=== PATIENT | female | born 1955 | race Caucasian/White ===

== ENCOUNTER 2023-05-19 10:25 | Outpatient (OUT) | payer MEDICARE, OTHER, SELFPAY ==
--- NOTE | 2023-05-19 10:27 | MM_ITS ---
Patient Name: REHANA READ MR#: [id number] : 1955 Exam Date: 05/19/2023 Ordering Doctor: DR XU WATERS RADIOLOGY REPORT PROCEDURE: MM TOMOSYNTHESIS SCREENING BI COMPARISON: MG MAMM SCREEN 3D VASU CAD, 03/06/2022. INDICATIONS: screening Calculator Name NCI Breast Cancer Risk Assessment Tool 5 Year Breast Cancer Risk 2.10% Lifetime Breast Cancer Risk 6.10% Personal Breast Cancer No Personal Ovarian Cancer No Treatments None Family Cancers None LOCATION: [facility] BREAST COMPOSITION: Scattered areas fibroglandular density. FINDINGS: DIAGNOSTIC CATEGORY 1--NEGATIVE. NO CHANGE FROM COMPARISON ASSESSMENT. Scattered benign-appearing calcifications are present. Scattered benign-appearing lymph nodes are present. RIGHT BREAST: No significant suspicious finding. LEFT BREAST: No significant suspicious finding. RECOMMENDATIONS: ROUTINE MAMMOGRAM AND CLINICAL EVALUATION IN 12 MONTHS. PLEASE NOTE: A NORMAL MAMMOGRAM DOES NOT EXCLUDE THE POSSIBILITY OF BREAST CANCER. A CLINICALLY SUSPICIOUS PALPABLE LUMP SHOULD BE BIOPSIED. Dictated by: Channing Mcpherson MD on 05/19/2023 at 11:45 Approved by: Channing Mcpherson MD on 05/19/2023 at 11:46
== END 2023-05-19 10:26 | disposition home or self-care (01) ==
LOC: MAMMO 10:25
PROVIDERS: PCP Family Medicine; Visit Provider Family Medicine
DX: Z12.31 Encounter for screening mammogram for malignant neoplasm of breast (principal)
CPT/HCPCS: 77063; 77067

== ENCOUNTER 2024-01-12 14:05 | Outpatient (OUT) | payer MEDICARE, OTHER, SELFPAY ==
--- NOTE | 2024-01-12 14:10 | XR_ITS ---
The [address] [address] Patient Name: REHANA READ MRN: [id number] date: 1955 Sex: F Assigned Patient Location: [facility] Current Patient Location: Accession/Order Number: [id number] Exam Date: 01/12/2024 14:25 Report Date: 01/15/2024 06:28 At the request of: XU WATERS Procedure: XR toe LT min 2V PROCEDURE: XR toe LT min 2V HISTORY: Pain Of Toe Of Left Foot M79.675 ; stubbed second toe 6 weeks ago COMPARISON: None. FINDINGS: BONES:Small nondisplaced corner fracture involving the distal medial corner of the second toe middle phalanx. Intra-articular extension no significant cortical step-off. SOFT TISSUES:No visible soft tissue swelling. EFFUSION:None visible. OTHER: Negative. XR/XR toe LT min 2V IMPRESSION: 1. Nondisplaced fracture of second middle phalanx with intra-articular extension. Electronically authenticated by: DEDE MARTINEZ Date: 01/15/2024 06:28
--- OUTSIDE RECORDS SUMMARY | 2024-01-12 14:24 | XMS_ITS | CCD ---
Author Organization [facility] Care Team Providers Care Coiled Tubing Supervisor Name Role Phone TIFFANIE ESQUIVEL Attending Unavailable TIFFANIE ESQUIVEL Admitting Unavailable TIFFANIE ESQUIVEL Consulting Unavailable FURLONG, DR STUART Mooney Primary Care Unavailable ONEL SEALS Unavailable FURLONG, DR STUART Mooney Consulting Unavailable FURLONG, DR STUART Mooney Attending Unavailable FURLONG, DR STUART Mooney Admitting Unavailable FURLONG, DR STUART Mooney Primary Care Unavailable FURLONG, DR STUART Mooney Primary Care Unavailable FURLONG, DR STUART Mooney Consulting Unavailable FURLONG, DR STAURT Mooney Attending Unavailable FURLONG, DR STUART Mooney Admitting Unavailable ZIEBER, DR NIKKO Astudillo Consulting Unavailable Unavailable Primary Care Provider Unavailidalia e Stuart Hazel DO Primary Care Provider STUART HAZEL Referring Unavailable FURLONG, STUART Mooney Primary Care Unavailable FURLONG, STUART Mooney Referring Unavailable FURLONG, STUART Mooney Primary Care Unavailable FURLOSTUART WOOD Attending Unavailable FURLOSTUART WOOD Referring Unavailable FURLONG, STUART Mooney Primary Care Unavailable FURLONG, STUART Mooney Attending Unavailable FURLONGSTUART Referring Unavailable FURLONG, STUART Mooney Primary Care Unavailable PRINCE GONZALES Attending Unavailable FURLONGSTUART Referring Unavailable FURLONG, STUART Mooney Primary Care Unavailable FURLONG, STUART Mooney Referring Unavailable FURLONG, STUART Mooney Primary Care Unavailable JIM VERONICA Admitting Unavailable JIM VERONICA Attending Unavailable FURLOSTUART WOOD Primary Care Unavailable RHETT MENDOZA Attending Unavailable STUART HAZEL Primary Care Unavailable JIM VERONICA Attending Unavailable JIM VERONICA Referring Unavailable FURLONGSTUART Primary Care Unavailable Medications Current Medications Medication Drug Class(es) Dates Sig (Normalized) Sig (Original) amLODIPine 2.5 mg oral tablet (5 sources) Dihydropyridine Calcium Channel Keven Start: 01-07-2024 take 1 tablet by mouth in the morning amLODIPine (NORVASC) 2.5 mg tablet take 1 tablet by mouth in the morning 90 tablet 1 01/07/2024 Active Start: 07-14-2023 End: 01-07-2024 take 1 tablet by mouth in the morning amLODIPine (NORVASC) 2.5 mg tablet Take 1 tablet (2.5 mg total) by mouth in the morning. 90 tablet 1 07/14/2023 01/07/2024 Discontinued Start: 01-14-2023 take 1 tablet by russ th in the morning amLODIPine (NORVASC) 2.5 mg tablet Take 1 tablet (2.5 mg total) by mouth in the morning. 90 tablet 1 01/14/2023 Active atorvastatin 10 mg oral tablet (5 sources) HMG-CoA Reductase Inhibitor Start: 08-14-2022 End: 05-13-2023 take 1 tablet by mouth once daily atorvastatin (LIPITOR) 10 mg tablet Indications: Hyperlipidemia, unspecified TAKE 1 TABLET BY MOUTH DAILY 90 tablet 2 05/13/2023 Active chondroitin sulfates 400 mg / glucosamine hydrochloride 500 mg oral tablet (2 sources) glucosamine-robert droi tin 500-400 mg tablet Take by mouth. Active glucosamine sulfate 500 mg oral tablet (4 sources) glucosamine sulf ate 500 mg tablet daily. Active irbesartan 300 mg oral tablet (5 sources) Angiotensin 2 Receptor Keven Start: 07-14-2023 take 1 tablet by mouth in the morning irbesartan (AVAPRO) 300 mg tablet Take 1 tablet (300 mg total) by mouth in the morning. 90 tablet 1 07/14/2023 Active Start: 06-26-2022 End: 05-13-2023 take 1 tablet by mouth once daily irbesartan (AVAPRO) 150 mg tablet Indications: Essential (primary) hypertension TAKE 1 TABLET BY MOUTH DAILY 90 tablet 2 05/13/2023 Active levothyroxine sodium 0.075 mg oral tablet (4 sources) l-Thyroxine Start: 10-02-2023 take 1 tablet by mouth once daily levothyroxine (SYNTHROID, LEVOTHROID) 75 MCG tablet Indications: Hypothyroidism take 1 tablet by mouth every day 90 tablet 2 10/02/2023 Active Start: 06-26-2022 take 1 tablet by once daily levothyroxine (SYNTHROID, LEVOTHROID) 75 MCG tablet Indications: Hypothyroidism TAKE 1 TABLET BY MOUTH EVERY DAY 90 tablet 3 06/26/2022 Active metoprolol tartrate 25 mg oral tablet (5 sources) beta-Adrenergic Keven Start: 12-19-2022 End: 12-21-2023 take 1 tablet by mouth twice daily metoprolol tartrate (LOPRESSOR) 25 mg tablet Indications: Essential hypertension take 1 tablet by mouth twice daily 180 tablet 1 12/21/2023 Active multivitamin-mine rals-lutein (CENTRUM SILVER) tablet (4 sources) multivitamin-min er als-lutein (CENTRUM SILVER) tablet daily. Active multivitamin-min erals-lutein (CENTRUM SILVER) tablet daily. 0 Active nystatin 123745 unt/ml topical cream (4 sources) Polyene Antifungal Start: 01-14-2023 apply 30 g topically twice daily nystatin (MYCOSTATIN) cream Indications: Intertrigo APPLY TO THE AFFECTED AREA(S) BY TOPICAL ROUTE 2 TIMES PER DAY 30 g 1 01/14/2023 Active omeprazole 20 mg delayed release oral tablet (2 sources) Proton Pump Inhibitor take 1 tablet by mouth in the morning omeprazole (PriLOSEC OTC) 20 mg EC tablet Take 1 tablet (20 mg total) by mouth in the morning. Active triamcinolone acetonide 0.005 mg/mg topical ointment (4 sources) Corticosteroid Start: 01-14-2023 triamcinolone (KENALOG) 0.5 % ointment Indications: Lichen sclerosus of female genitalia Apply 1 Application topically in the morning and 1 Application before bedtime. 15 g 1 01/14/2023 Active Completed/Discontinued Medications Medication Drug Class(es) Dates Sig (Normalized) Sig (Original) Gadobutrol (GADAVIST) 1 MMOL/ML injection 1-30 mL (1 source) Start: 10-02-2022 End: 10-02-2022 Gadobutrol (GADAVIST) 1 MMOL/ML injection 1-30 mL 20 ml sodium chloride 9 mg/ml injection (1 source) Start: 10-02-2022 End: 10-02-2022 Sodium chloride (PF) 0.9 % injection 1-100 mL Problems Active Problems Problem Classification Problem Date Documented Da te Episodic/Chronic Cardiac dysrhythmias (7 sources) Multiple premature ventricular complexes; Translations: [Ventricular premature depolarization] Onset: 7 05-13-2022 Chronic Cardiac dysrhythmias (4 sources) Bradycardia, unspecified; Translations: [BRADYCARDIA UNSPECIFIED] Onset: 3 Episodic Disorders of lipid metabolism (12 sources) Hyperlipidemia, unspecified; Translations: [Hyperlipidemia] Onset: 3 Chronic Diverticulosis and diverticulitis (1 source) Diverticulosis of intestine, part unspecified, without perforation or abscess without bleeding; Translations: [Diverticulosis of intestine, part unspecified, without perforation or abscess without bleeding] Onset: 4 Chronic Esophageal disorders (4 sources) Gastroesophageal reflux disease; Translations: [Gastro-esophageal reflux disease without esophagitis] Onset: 7 05-13-2022 Chronic Essential hypertension (10 sources) Essential (primary) hypertension; Translations: [Essential hypertension] Onset: 3 05-13-2023 Chronic Gastrointestinal hemorrhage (1 source) Melena; Translations: [Melena] Onset: 4 Episodic Menopausal disorders (1 source) Hormone replacement therapy; Translations: [HORMONE REPLACEMENT THERAPY] Onset: 3 Episodic Osteoarthritis (4 sources) Osteoarthritis; Translations: [Unspecified osteoarthritis, unspecified site] Onset: 3 05-13-2022 Chronic Other aftercare (1 source) Other halfway (current) drug therapy; Translations: [OTH CORRECTION CURRENT DRUG THERAPY] Onset: 3 Episodic Other nutritional; endocrine; and metabolic disorders (1 source) Overweight; Translations: [Overweight] Onset: 4 Episodic Other screening for suspected conditions (not mental disorders or infectious disease) (6 sources) Encounter for screening mammogram for malignant neoplasm of breast; Translations: [Encounter for screening for malignant neoplasm of colon] Onset: 2 Episodic Screening and history of mental health and substance abuse codes (1 source) Patient encounter status; Translations: [Encounter for screening for depression] 06-17-2023 Episodic Thyroid disorders (7 sources) Hypothyroidism, unspecified; Translations: [Hypothyroidism] Onset: 3 02-27-2023 Chronic Unclassified (1 source) Colon Cancer Screening Onset: 4 Unclassified (1 source) medicare annual wellness Onset: 4 Unclassified (1 source) Esophagitis, unspecified without bleeding; Translations: [Esophagitis, unspecified without bleeding] Onset: 4 Unclassified (1 source) screening, black stools Onset: 4 Past or Other Problems Problem Classification Problem Date Documented Da te Episodic/Chronic Diabetes mellitus without complication (4 sources) Hyperglycemia; Translations: [Hyperglycemia, unspecified] Onset: 08-09-2016 05-13-2022 Episodic Mood disorders (4 sources) Mood disorders Onset: 01-14-2023 Resolved: 07-14-2023 01-14-2023 Other nutritional; endocrine; and metabolic disorders (4 sources) Obesity; Translations: [Obesity, unspecified] Onset: 05-13-2022 Resolved: 07-14-2023 05-13-2022 Chronic Unclassified (4 sources) Onset: 01-14-2023 01-14-2023 Results Test Name Value Interpretation Reference Range Facility H PYLORI SCREENon 09-15-2023 H. pylori Org specific cx Ql (Lucero fld) Negative Normal NEG [facility] Comment on above: Performed By: #### 4 4015-6 #### [facility] ([id number]) [address] [place] [address] [address] [place] [address] Surgical Pathologyon 024 Surgical Pathology Normal [facility] Comment on above: Result Comment: [facility] [address] [place] [address] Surgical Pathology Consultation Patient Name:REHANA READ:1955 (Age: 68)Gender:FTaken:4Reported:09/19/2023hysician(s):Jim Veronica D.O. ([phone])Copy To: Rec. #:[id number]: #[id number] Final Pathologic Diagnosis 1. Stomach, antrum, biopsy: Gastric mucosa with mild reactive changes. No histological evidence of H. pylori infection on routine stain. 2. Distal esophagus, biopsy: Mildly reactive junctional mucosa without intestinal metaplasia and dysplasia. Report Electronically Signed Out rg/4Rfederico Baltazar MD Interpretation performed at [facility], [address] [place] [id number], License number: [id number]. Clinical History Screening, black stools. Gross Description 1. Received in formalin labeled RORO, #1: Antrum biopsy are 2 delarosa bits of soft tissue, each 0.3 cm in greatest dimension. Filtered and submitted in a single cassette. (1, ns, [id number], m7) MG 2. Received in formalin labeled RORO, #2: Distal esophagus biopsy are 2 delarosa bits of soft tissue, ranging from 0.4-0.5 cm in greatest dimension. Filtered and submitted in a single cassette. (1, ns, [id number], m7) MG mjg/09/15/2023GR Specimen(s) Received 1: Antrum biopsy 2: Distal esophageal biopsy Fee Codes(s): 1; 85356 2; 56741 COMPREHENSIVE METABOLIC PANE [facility] 07-14-2023 Albumin [Mass/Vol] 4.1 g/dL Normal 3.2-5.3 [facility] Comment on above: Performed By: #### T JOOJR, 80592-1, CMP #### [facility] ([id number]) [address], [address] [place] [address] ALP [Catalytic activity/Vol] 65 U/L Normal 39-130 [facility] Comment on above: Performed By: #### T HYR, 19123-9, CMP #### [facility] ([id number]) [address], [address] [place] [address] ALT [Catalytic activity/Vol] 20 U/L Normal 0-31 [facility] Comment on above: Performed By: #### T HYR, 73108-4, CMP #### [facility] ([id number]) [address], [address] [place] [address] Anion gap [Moles/Vol] 10 mmol/L Normal 5-15 [facility] Comment on above: Performed By: #### Zachary DONNELLY 44481-3, CMP #### [facility] ([id number]) [address], [address] [place] [address] AST [Catalytic activity/Vol] 21 U/L Normal 0-41 [facility] Comment on above: Performed By: #### Zachary DONNELLY 34567-1, CMP #### [facility] ([id number]) [address], [address] [place] [address] Bilirubin [Mass/Vol] 0.6 mg/dL Normal 0.3-1.2 [facility] Comment on above: Performed By: #### Zachary DONNELLY 51904-4, CMP #### [facility] ([id number]) [address], [address] [place] [address] Calcium [Mass/Vol] 8.7 mg/dL Normal 8.5-10.5 [facility] Comment on above: Performed By: #### Zachary DONNELLY 54816-1, CMP #### [facility] ([id number]) [address], [address] [place] [address] Chloride [Moles/Vol] 103 mmol/L Normal 98-109 [facility] Comment on above: Performed By: #### Zachary DONNELLY 61575-4, CMP #### [facility] ([id number]) [address], [address] [place] [address] CO2 [Moles/Vol] 31 mmol/L Normal 22-32 [facility] Comment on above: Performed By: #### Zachary DONNELLY 02229-4, CMP #### [facility] ([id number]) [address], [address] [place] [address] Creatinine [Mass/Vol] 0.62 mg/dL Normal 0.40-1.00 [facility] Comment on above: Result Comment: METH OD TRACEABLE TO IDMS STANDARD Performed By: #### Zachary DONNELLY, 53357-9, CMP #### [facility] ([id number]) [address], [address] [place] [address] eGFR (CKD-EPI) NON-RACE DEPENDENT >90 Normal >59 [facility] Comment on above: Result Comment: Reported eGFR is based on the CKD-EPI 2020 equation that does not use a race coefficient. Performed By: #### Zachary DONNELLY, 32405-9, CMP #### [facility] ([id number]) [address], [address] [place] [address] Glucose [Mass/Vol] 82 mg/dL Normal 65-99 [facility] Comment on above: Performed By: #### Zachary DONNELLY, 13441-0, CMP #### [facility] ([id number]) [address], [address] [place] [address] Potassium [Moles/Vol] 3.8 mmol/L Normal 3.5-5.0 [facility] Comment on above: Performed By: #### Zachary DONNELLY 30435-0, CMP #### [facility] ([id number]) [address], [address] [place] [address] Protein [Mass/Vol] 7.2 g/dL Normal 6.0-8.0 [facility] Comment on above: Performed By: #### Zachary DONNELLY, 31290-4, CMP #### [facility] ([id number]) [address], [address] [place] [address] Sodium [Moles/Vol] 144 mmol/L Normal 134-146 [facility] Comment on above: Performed By: #### Zachary DONNELLY, 44057-2, CMP #### [facility] ([id number]) [address], [address] [place] [address] Urea nitrogen [Mass/Vol] 14 mg/dL Normal 5-27 [facility] Comment on above: Performed By: #### Zachary DONNELLY, 72953-0, CMP #### [facility] ([id number]) [address], [address] [place] [address] Lipid 1996 panelon 4 Cholesterol [Mass/Vol] 165 mg/dL Normal 150-200 [facility] Comment on above: Performed By: #### Zachary DONNELLY, 32203-0, CMP #### [facility] ([id number]) [address], [address] [place] [address] Cholesterol in HDL [Mass/Vol] 77 mg/dL Normal >39 [facility] Comment on above: Result Comment: HDL <40 mg/dL - High Risk HDL > or = 40mg/dL- Desirable HDL >60 mg/dL - Negative Risk Performed By: #### Zachary DONNELLY, 03336-5, CMP #### [facility] ([id number]) [address], [address] [place] [address] Cholesterol in LDL [Mass/Vol] 68 mg/dL Normal <130 [facility] Comment on above: Result Comment: LDL <100 mg/dL - Desirable LDL >160 mg/dL - High Risk Performed By: #### Zachary DONNELLY, 16452-0, CMP #### [facility] ([id number]) [address], [address] [place] [address] Cholesterol in VLDL [Mass/Vol] 20 mg/dL Normal 0-30 [facility] Comment on above: Performed By: #### Zachary DONNELLY, 65500-1, CMP #### [facility] ([id number]) [address], [address] [place] [address] CHOLESTEROL:HDL 2.1 Normal 1.0-5.0 [facility] Comment on above: Performed By: #### Zachary DONNELLY, 24305-2, CMP #### [facility] ([id number]) [address], [address] [place] [address] Triglyceride [Mass/Vol] 100 mg/dL Normal 27-150 [facility] Comment on above: Performed By: #### Zachary DONNELLY, 92291-0, CMP #### [facility] ([id number]) [address], [address] [place] [address] THYROID PROFILEon 07-14-2023 Free T4 [Mass/Vol] 1.08 ng/dL Normal 0.61-1.60 [facility] Comment on above: Performed By: #### Zachary DONNELLY, 93232-9, CMP #### [facility] ([id number]) [address], [address] [place] [address] TSH 1.43 uIU/mL Normal 0.49-4.67 [facility] Comment on above: Performed By: #### Zachary DONNELLY, 46059-8, CMP #### [facility] ([id number]) [address], [address] [place] [address] HEMATOCRITon 10-02-2022 Hematocrit (Bld) [Volume fraction] 37.5 % 34.9 - 44.3 % [facility] Interpretation and review of laboratory results Normal [facility] CARDIAC GENEVIEVE 3-6on 3 CK [Catalytic activity/Vol] 79 U/L Normal 26-192 [facility] Comment on above: Performed By: #### C MREP #### [facility] [address] [address] [address] Joselito Lutz HSTROP 5.2 pg/mL Normal 4.0-51.3 [facility] Comment on above: Result Comment: CUT- OFF POINTS HAVE BEEN ESTABLISHED BASED ON THE FOURTH UNIVERSAL DEFINITIONS OF MYOCARDIAL INFARCTION. THE UPPER REFERENCE LIMIT (URL) OF TROPONIN, DEFINED THE 99TH PERCENTILE OF cTnI DISTRIBUTION IN A REFERENCE POPULATION, HAS BEEN CONFIRMED THE DECISION THRESHOLD FOR ND DIAGNOSIS. Performed By: #### C MREP #### [facility] [address] [place] [address] Dr. Joselito Lutz CARDIAC GENEVIEVE ADMITon 023 CK [Catalytic activity/Vol] 92 U/L Normal 26-192 [facility] Comment on above: Performed By: #### B LM, ZACHARYDM #### [facility] [address] [place] [address] Dr. Joselito Lutz HSTROP 4.8 pg/mL Normal 4.0-51.3 [facility] Comment on above: Result Comment: CUT- OFF POINTS HAVE BEEN ESTABLISHED BASED ON THE FOURTH UNIVERSAL DEFINITIONS OF MYOCARDIAL INFARCTION. THE UPPER REFERENCE LIMIT (URL) OF TROPONIN, DEFINED THE 99TH PERCENTILE OF cTnI DISTRIBUTION IN A REFERENCE POPULATION, HAS BEEN CONFIRMED THE DECISION THRESHOLD FOR ND DIAGNOSIS. Performed By: #### B ZACHARY AMATODM #### [facility] [address] [place] [address] Dr. Joselito Lutz ISRAEL 42 ng/mL Normal 9-82 [facility] Comment on above: Performed By: #### B ZACHARY AMATODM #### [facility] [address] [place] [address] Dr. Joselito Lutz CBC AUTO DIFFon 05-20-2022 BASO # 0.1 103/ul Normal 0.0-0.1 [facility] Comment on above: Performed By: #### C BC #### [facility] [address] [place] [address] Dr. Joselito Lutz Basophils/100 WBC (Bld) 0.7 % Normal 0.2-2.0 [facility] Comment on above: Performed By: #### C BC #### [facility] [address] [place] [address] Dr. Joselito Lutz EO # 0.2 103/ul Normal 0.0-0.7 [facility] Comment on above: Performed By: #### C BC #### [facility] [address] [place] [address] Dr. Joselito Lutz Eosinophils/100 WBC (Bld) 2.5 % Normal 0.9-7.0 [facility] Comment on above: Performed By: #### C BC #### [facility] [address] [place] [address] Dr. Joselito Lutz Erythrocyte distribution width (RBC) [Ratio] 12.6 % Normal 11.0-15.0 [facility] Comment on above: Performed By: #### C BC #### [facility] [address] [place] [address] Dr. Joselito Lutz Hematocrit (Bld) [Volume fraction] 37.9 % Normal 36.0-48.0 [facility] Comment on above: Performed By: #### C BC #### [facility] [address] [place] [address] Dr. Joselito Lutz Hemoglobin (Bld) [Mass/Vol] 12.6 g/dL Normal 12.0-16.0 [facility] Comment on above: Performed By: #### C BC #### [facility] [address] [place] [address] Dr. Joselito Lutz IG # 0.01 10e3/ul Normal 0.00-0.03 [facility] Comment on above: Performed By: #### C BC #### [facility] [address] [place] [address] Dr. Joselito Lutz IG % 0.1 % Normal 0.0-0.5 [facility] Comment on above: Performed By: #### C BC #### [facility] [address] [place] [address] Dr. Joselito Lutz LYMPH # 2.6 103/ul Normal 1.2-3.8 [facility] Comment on above: Performed By: #### C BC #### [facility] [address] [place] [address] Dr. Joselito Lutz Lymphocytes/100 WBC (Bld) 36.7 % Normal 20.5-60.0 [facility] Comment on above: Performed By: #### C BC #### [facility] [address] [place] [address] Dr. Joselito Lutz MANUAL DIFF REQ NO Normal [facility] Comment on above: Performed By: #### C BC #### [facility] [address] [place] [address] Dr. Joselito Lutz MCH (RBC) [Entitic mass] 29.6 pg Normal 26.7-34.0 [facility] Comment on above: Performed By: #### C BC #### [facility] [address] [place] [address] Dr. Joselito Lutz MCHC (RBC) [Mass/Vol] 33.2 g/dL Normal 29.9-35.2 [facility] Comment on above: Performed By: #### C BC #### [facility] [address] [place] [address] Dr. Joselito Lutz MCV (RBC) [Entitic vol] 89.0 fL Normal 81.0-99.0 [facility] Comment on above: Performed By: #### C BC #### [facility] [address] [place] [address] Dr. Joselito Lutz MONO # 0.7 103/ul Normal 0.3-0.8 [facility] Comment on above: Performed By: #### C BC #### [facility] [address] [place] [address] Dr. Joselito Lutz Monocytes/100 WBC (Bld) 9.2 % Normal 1.7-12.0 [facility] Comment on above: Performed By: #### C BC #### [facility] [address] [place] [address] Dr. Joselito Lutz NEUT # 3.6 103/ul Normal 1.4-6.5 [facility] Comment on above: Performed By: #### C BC #### [facility] [address] [place] [address] Dr. Joselito Lutz Neutrophils/100 WBC (Bld) 50.8 % Normal 43.0-75.0 [facility] Comment on above: Performed By: #### C BC #### [facility] [address] [place] [address] Dr. Joselito Lutz Platelet mean volume (Bld) [Entitic vol] 11.9 fL Normal 9.5-13.5 [facility] Comment on above: Performed By: #### C BC #### [facility] [address] [place] [address] Dr. Joselito Lutz PLT 242 103/ul Normal 150-450 [facility] Comment on above: Performed By: #### C BC #### [facility] [address] [place] [address] Dr. Joselito Lutz RBC 4.26 106/ul Normal 4.20-5.40 [facility] Comment on above: Performed By: #### C BC #### [facility] [address] [place] [address] Dr. Joselito Lutz WBC 7.1 103/ul Normal 4.0-11.0 [facility] Comment on above: Performed By: #### C BC #### [facility] [address] [place] [address] Dr. Joselito Lutz PROF CHEM 8 (BAS METB)on Anion gap [Moles/Vol] 10.6 mmol/L Normal [facility] Comment on above: Performed By: #### B BECKI AMATO #### [facility] [address] [place] [address] Dr. Joselito Lutz Calcium [Mass/Vol] 9.2 mg/dL Normal 8.5-10.1 [facility] Comment on above: Performed By: #### B BECIK AMATO #### [facility] [address] [place] [address] Dr. Joselito Lutz Chloride [Moles/Vol] 104 mmol/L Normal 98-107 [facility] Comment on above: Performed By: #### B BECKI AMATO #### [facility] [address] [place] [address] Dr. Joselito Lutz CO2 [Moles/Vol] 30.7 mmol/L Normal 21.0-32.0 [facility] Comment on above: Performed By: #### B BEKCI AMATO #### [facility] [address] [address] [address] Joselito Lutz Creatinine [Mass/Vol] 0.56 mg/dL Normal 0.55-1.02 [facility] Comment on above: Performed By: #### B LM, BECKI #### [facility] [address] [address] [address] Joselito Lutz EGFR-AF MAURITIAN >60 Normal >=60 [facility] [place] Comment on above: Performed By: #### B LM, BECKI #### [facility] [address] [address] [address] Joselito Lutz EGFR-NON AF MAURITIAN >60 Normal >=60 [facility] Comment on above: Performed By: #### B BECKI AMATO #### [facility] [address] [address] [address] Joselito Lutz Glucose [Mass/Vol] 103 mg/dL Normal 74-106 [facility] Comment on above: Performed By: #### B BECKI AMATO #### [facility] [address] [address] [address] Joselito Lutz Potassium [Moles/Vol] 3.3 mmol/L Critically low 3.5-5.1 [facility] Comment on above: Performed By: #### B BECKI AMATO #### [facility] [address] [address] [address] Joselito Lutz Sodium [Moles/Vol] 142 mmol/L Normal 136-145 [facility] Comment on above: Performed By: #### B BECKI AMATO #### [facility] [address] [address] [address] Joselito Lutz Urea nitrogen [Mass/Vol] 11.0 mg/dL Normal 7.0-18.0 [facility] Comment on above: Performed By: #### B BECKI AMATO #### [facility] [address] [address] [address] Joselito Lutz Urea nitrogen/Creatinine [Mass ratio] 19.6 mg/mg Normal [facility] Comment on above: Performed By: #### B BECKI AMATO #### [facility] [address] [place], [place] [address] Dr. Joselito Lutz XR CHEST 1 Von 05-20-2022 XR CHEST 1 V EXAM: XR CHEST 1 V HISTORY: Bradycardia COMPARISON: None available TECHNIQUE: Single frontal view chest x-ray FINDINGS: No lobar lung consolidation, large pleural effusions, pneumothorax, or acute bony abnormality. Cardiac size is unremarkable. IMPRESSION: No radiographic evidence for acute chest abnormality. Electronically authenticated by: ONEL SEALS Date: 2022-05-20 03:08 Normal [facility] FREE T4on 05-15-2022 Free T4 [Mass/Vol] 1.12 ng/dL Normal 0.76-1.46 [facility] Comment on above: Performed By: #### F T4 #### [facility] [address] [address] [address] Joselito Lutz LIPID PROFILEon 05-15-2022 CHOL-HDL RATIO NORM SEE BELOW Normal [facility] Comment on above: Result Comment: 3.3 - 4.4 LOW RISK 4.4 - 7.1 AVERAGE RISK 7.1 - 11.0 MODERATE RISK >11.0 HIGH RISK Performed By: #### T SH, CMP, LIPID #### [facility] [address] [address] [address] Joselito Lutz Cholesterol [Mass/Vol] 161 mg/dL Normal <=200 [facility] Comment on above: Performed By: #### T SH, CMP, LIPID #### [facility] [address] [address] [address] Joselito Lutz Cholesterol in HDL [Mass/Vol] 68 mg/dL Critically high 40-60 [facility] Comment on above: Performed By: #### T SH, CMP, LIPID #### [facility] [address] [place], [place] [address] Dr. Joselito Lutz Cholesterol in LDL [Mass/Vol] 80.2 mg/dL Normal [facility] Comment on above: Performed By: #### T SH, CMP, LIPID #### [facility] [address] [address] [address] Joselito Lutz Cholesterol.total/Cho lesterol in HDL [Mass ratio] 2.4 {ratio} Normal [facility] Comment on above: Performed By: #### T SH, CMP, LIPID #### [facility] [address] [address] [address] Joselito Lutz HDL NORMAL > or = 60 mg/dl - LOW CARDIOVASCULAR RISK <40 mg/dl - HIGH CARDIOVASCULAR RISK Normal [facility] Comment on above: Performed By: #### T SH, CMP, LIPID #### [facility] [address] [address] [address] Joselito Lutz LDL CALC NORMAL SEE BELOW Normal [facility] Comment on above: Result Comment: <100 mg/dl OPTIMAL 100 - 129 mg/dl NEAR OR ABOVE OPTIMAL 130 - 159 mg/dl BORDERLINE HIGH 160 - 189 mg/dl HIGH >190 mg/dl VERY HIGH Performed By: #### T SH, CMP, LIPID #### [facility] [address] [address] [address] Joselito Lutz Triglyceride [Mass/Vol] 64 mg/dL Normal <=150 [facility] Comment on above: Performed By: #### T SH, CMP, LIPID #### [facility] [address] [address] [address] Joselito Lutz VLDL CALC 12.8 mg/dL Normal [facility] Comment on above: Performed By: #### T SH, CMP, LIPID #### [facility] [address] [address] [address] Joselito Lutz PROF 14(COMP METB)on 023 Albumin [Mass/Vol] 3.8 g/dL Normal 3.4-5.0 [facility] Comment on above: Performed By: #### T SH, CMP, LIPID #### [facility] [address] [address] [address] Joselito Lutz Albumin/Globulin [Mass ratio] 1.1 {ratio} Normal [facility] Comment on above: Performed By: #### T SH, CMP, LIPID #### [facility] [address] [address] [address] Joselito Lutz ALP [Catalytic activity/Vol] 80 U/L Normal 46-116 [facility] Comment on above: Performed By: #### T SH, CMP, LIPID #### [facility] [address] [address] [address] Joselito Lutz ALT [Catalytic activity/Vol] 24 U/L Normal 14-59 [facility] Comment on above: Performed By: #### T SH, CMP, LIPID #### [facility] [address] [address] [address] Joselito Lutz Anion gap [Moles/Vol] 10.7 mmol/L Normal [facility] Comment on above: Performed By: #### T SH, CMP, LIPID #### [facility] [address] [address] [address] Joselito Lutz AST [Catalytic activity/Vol] 19 U/L Normal 15-37 [facility] Comment on above: Performed By: #### T SH, CMP, LIPID #### [facility] [address] [place] [address] Dr. Joselito Lutz Bilirubin [Mass/Vol] 0.6 mg/dL Normal 0.2-1.0 [facility] Comment on above: Performed By: #### T SH, CMP, LIPID #### [facility] [address] [address] [address] Joselito Lutz Calcium [Mass/Vol] 9.4 mg/dL Normal 8.5-10.1 [facility] Comment on above: Performed By: #### T SH, CMP, LIPID #### [facility] [address] [address] [address] Joselito Lutz Chloride [Moles/Vol] 107 mmol/L Normal 98-107 [facility] Comment on above: Performed By: #### T SH, CMP, LIPID #### [facility] [address] [address] [address] Joselito Lutz CO2 [Moles/Vol] 30.4 mmol/L Normal 21.0-32.0 [facility] Comment on above: Performed By: #### T SH, CMP, LIPID #### [facility] [address] [address] [address] Joselito Lutz Creatinine [Mass/Vol] 0.61 mg/dL Normal 0.55-1.02 [facility] Comment on above: Performed By: #### T SH, CMP, LIPID #### [facility] [address] [address] [address] Joselito Lutz EGFR-AF MAURITIAN >60 Normal >=60 [facility] Comment on above: Performed By: #### T SH, CMP, LIPID #### [facility] [address] [address] [address] Joselito Lutz EGFR-NON AF MAURITIAN >60 Normal >=60 [facility] Comment on above: Performed By: #### T SH, CMP, LIPID #### [facility] [address] [address] [address] Joselito Lutz Globulin (S) [Mass/Vol] 3.6 g/dL Normal [facility] Comment on above: Performed By: #### T SH, CMP, LIPID #### [facility] [address] [address] [address] Joselito Lutz Glucose [Mass/Vol] 94 mg/dL Normal 74-106 [facility] Comment on above: Performed By: #### T SH, CMP, LIPID #### [facility] [address] [address] [address] Joselito Lutz Potassium [Moles/Vol] 4.1 mmol/L Normal 3.5-5.1 [facility] Comment on above: Performed By: #### T SH, CMP, LIPID #### [facility] [address] [address] [address] Joselito Lutz Protein [Mass/Vol] 7.4 g/dL Normal 6.4-8.2 [facility] Comment on above: Performed By: #### T SH, CMP, LIPID #### [facility] [address] [address] [address] Joselito Lutz Sodium [Moles/Vol] 144 mmol/L Normal 136-145 [facility] Comment on above: Performed By: #### T SH, CMP, LIPID #### [facility] [address] [address] [address] Joselito Lutz Urea nitrogen [Mass/Vol] 10.0 mg/dL Normal 7.0-18.0 [facility] Comment on above: Performed By: #### T SH, CMP, LIPID #### [facility] [address] [address] [address] Joselito Lutz Urea nitrogen/Creatinine [Mass ratio] 16.4 mg/mg Normal [facility] Comment on above: Performed By: #### T SH, CMP, LIPID #### [facility] [address] [address] [address] Joselito Lutz TSHon 05-15-2022 TSH 1.161 uIU/mL Normal 0.358-3.740 [facility] Comment on above: Performed By: #### T SH, CMP, LIPID #### [facility] [address] [address] [address] Joselito Lutz MG MAMM SCREEN 3D VASU CADon 03-06-2022 MG MAMM SCREEN 3D VASU CAD Patient: REHANA READ Exam Date: 03/06/2022 : 1955 Gender:F Ordering : DR STUART HAZEL Admission #: [id number] Family : Order #: [id number] CLICK HERE TO VIEW EXAM RADIOLOGY REPORT PROCEDURE: MAMMOGRAM SCREENING 3D BILATERAL CAD COMPARISON: MG MAMM SCREEN VASU W CAD, 05/14/2019. INDICATIONS: Screening mammography Calculator Name NCI Breast Cancer Risk Assessment Tool 5 Year Breast Cancer Risk 2.10% Lifetime Breast Cancer Risk 6.70% Personal Breast Cancer No Personal Ovarian Cancer No Treatments None Family Cancers None LOCATION: [facility] BREAST COMPOSITION: Scattered areas fibroglandular density. FINDINGS: DIAGNOSTIC CATEGORY 1--NEGATIVE. RIGHT BREAST: No significant suspicious finding. No significant change has occurred. LEFT BREAST: No significant suspicious finding. No significant change has occurred. RECOMMENDATIONS: ROUTINE MAMMOGRAM AND CLINICAL EVALUATION IN 12 MONTHS. PLEASE NOTE: A NORMAL MAMMOGRAM DOES NOT EXCLUDE THE POSSIBILITY OF BREAST CANCER. A CLINICALLY SUSPICIOUS PALPABLE LUMP SHOULD BE BIOPSIED. Dictated by: Nikko Minor M.D. on 03/06/2022 at 14:00 Approved by: Nikko Minor M.D. on 03/06/2022 at 14:05 Normal [facility] COMPREHENSIVE METABOLIC PANE Marck 06-26-2021 Albumin [Mass/Vol] 4.1 g/dL Normal 3.6-5.1 [facility] Comment on above: Performed By: #### 5 8984, 13473, 7600 #### [facility] of [place] [address] Water Plumber: Rock Estrada MD Albumin/Globulin [Mass ratio] 1.3 {ratio} Normal 1.0-2.5 [facility] Comment on above: Performed By: #### 5 8984, 11012, 7600 #### [facility] of [address], [address] [place] [address] Water Plumber: Rock Estrada MD ALP [Catalytic activity/Vol] 92 U/L Normal 37-153 [facility] Comment on above: Performed By: #### 5 8984, 21033, 0 #### [facility] of [place] [address] [employer] Plumber: Rock Estrada MD ALT [Catalytic activity/Vol] 18 U/L Normal 6-29 [facility] Comment on above: Performed By: #### 5 8984, 11597, 0 #### [facility] of [place] [address] Water Plumber: Rock Estrada MD AST [Catalytic activity/Vol] 19 U/L Normal 10-35 [facility] Comment on above: Performed By: #### 5 8984, 78476, 0 #### [facility] [place] [address] Water Plumber: Rock Estrada MD Bilirubin [Mass/Vol] 0.6 mg/dL Normal 0.2-1.2 [facility] Comment on above: Performed By: #### 5 8984, 04967, 7600 #### [facility] [place] [address] Water Plumber: Rock Estrada MD BUN/CREATININE RATIO NOT APPLICABLE Normal 6-22 [facility] Comment on above: Performed By: #### 5 8984, 57285, 7600 #### [facility] [address], [address] [place] [address] Water Plumber: Rock Estrada MD Calcium [Mass/Vol] 9.0 mg/dL Normal 8.6-10.4 [facility] Comment on above: Performed By: #### 5 8984, 83815, 0 #### [facility] [place] [address] Water Plumber: Rock Estrada MD Chloride [Moles/Vol] 104 mmol/L Normal 98-110 [facility] Comment on above: Performed By: #### 5 8984, , 0 #### [facility] [place] [address] Water Plumber: Rock Estrada MD CO2 [Moles/Vol] 30 mmol/L Normal 20-32 [facility] Comment on above: Performed By: #### 5 8984, , 0 #### [facility] [place] [address] Water Plumber: Rock Estrada MD Creatinine [Mass/Vol] 0.72 mg/dL Normal 0.50-0.[address] [facility] Comment on above: Result Comment: For patients >49 years of age, the reference limit for Creatinine is approximately 13% higher for people identified as -[place]. Performed By: #### 5 8984, , 0 #### [facility] [place] [address] Water Plumber: Rock Estrada MD eGFR NON-AFR. MAURITIAN 86 mL/min/1.73m2 Normal > OR = 60 [facility] Comment on above: Performed By: #### 5 8984, 91248, 0 #### [facility] [place] [address] Water Plumber: Rock Estrada MD GFR/1.73 sq M.predicted among blacks MDRD (S/P/Bld) [Vol rate/Area] 100 mL/min/{1.73_m2} Normal > OR = 60 [facility] Comment on above: Performed By: #### 5 8984, 01718, 0 #### [facility] [place] [address] Water Plumber: Rock Estrada MD Globulin (S) [Mass/Vol] 3.1 g/dL Normal 1.9-3.7 [facility] Comment on above: Performed By: #### 5 8984, 48711, 0 #### [facility] of [address], [address] [place] [address] Water Plumber: Rock Estrada MD Glucose [Mass/Vol] 95 mg/dL Normal 65-99 [facility] Comment on above: Result Comment: Fasting reference interval Performed By: #### 5 8984, , 0 #### [facility] of [place] [address] Water Plumber: Rock Estrada MD Potassium [Moles/Vol] 4.0 mmol/L Normal 3.5-5.[address] [facility] Comment on above: Performed By: #### 5 8984, 67836, 0 #### [facility] [place] [address] Water Plumber: Rock Estrada MD Protein [Mass/Vol] 7.2 g/dL Normal 6.1-8.1 [facility] Comment on above: Performed By: #### 5 8984, , 0 #### [facility] of [place] [address] Water Plumber: Rock Estrada MD Sodium [Moles/Vol] 142 mmol/L Normal 135-146 [facility] Comment on above: Performed By: #### 5 8984, 37442, 0 #### [facility] of [place] [address] Water Plumber: Rock Estrada MD Urea nitrogen [Mass/Vol] 13 mg/dL Normal 7-25 [facility] Comment on above: Performed By: #### 5 8984, 71353, 7600 #### [facility] [address], [address] [place] [address] Water Plumber: Rock Estrada MD LIPID PANEL, [facility] 06-15 Cholesterol [Mass/Vol] 172 mg/dL Normal <200 [facility] Comment on above: Order Comment: FASTI NG:YES FASTING: YES Performed By: #### 5 8984, 93032, 7600 #### [facility] [address], [address] [place] [address] Water Plumber: Rock Estrada MD Cholesterol in HDL [Mass/Vol] 58 mg/dL Normal > OR = 50 [facility] Comment on above: Order Comment: FASTI NG:YES FASTING: YES Performed By: #### 5 8984, 99470, 7600 #### [facility] [address], [address] [place] [address] Water Plumber: Rock Estrada MD Cholesterol in LDL [Mass/Vol] 88 mg/dL Normal [facility] Comment on above: Order Comment: FASTI NG:YES FASTING: YES Result Comment: Refe rence range: <100 Desirable range <100 mg/dL for primary prevention; <70 mg/dL for patients with CHD or diabetic patients with > or = 2 CHD risk factors. LDL-C is now calculated using the Parag calculation, which is a validated novel method providing better accuracy than the Friedewald equation in the estimation of LDL-C. Lexa LUNA et al. ELADIO. 2013;310(19): 7681-9629 (http://education.[employer].Vinny/faq/RPN812) Performed By: #### 5 8984, 32213, 7600 #### [facility] [address], [address] [place] [address] Water Plumber: Rock Estrada MD Cholesterol.total/Cho lesterol in HDL [Mass ratio] 3.0 {ratio} Normal <5.0 [facility] Comment on above: Order Comment: FASTI NG:YES FASTING: YES Performed By: #### 5 8984, 59446, 7600 #### [facility] [place] [address] [address] Water Plumber: Rock Estrada MD NON HDL CHOLESTEROL 114 mg/dL (calc) Normal <130 [facility] Comment on above: Order Comment: FASTI NG:YES FASTING: YES Result Comment: For patients with diabetes plus 1 major ASCVD risk factor, treating to a non-HDL-C goal of <100 mg/dL (LDL-C of <70 mg/dL) is considered a therapeutic option. Performed By: #### 5 8984, 36727, 0 #### [facility] [place] [address] Water Plumber: Rock Estrada MD Triglyceride [Mass/Vol] 154 mg/dL High <150 [facility] Comment on above: Order Comment: FASTI NG:YES FASTING: YES Performed By: #### 5 8984, 15696, 0 #### [facility] [place] [address] Water Plumber: Rock Estrada MD TSH+FREE T4on 06-26-2021 Free T4 [Mass/Vol] 1.2 ng/dL Normal 0.8-1.8 [facility] Comment on above: Performed By: #### 5 8984, 78220, 0 #### [facility] [place] [address] Water Plumber: Rock Estrada MD TSH Qn 3.03 m[IU]/L Normal 0.40-4.50 [facility] Comment on above: Performed By: #### 5 8984, 33609, 0 #### [facility] [place] [address] Water Plumber: Rock Estrada MD Echocardiogramon 10-31-[address], [address] [facility], [place] [address] TRANSTHORACIC ECHOCARDIOGRAM REPORT Patient Name: REHANA Claudio Physician: [id number] Yuan READ MD Study Date: 10/31/2020 Referring Physician: [id number] BEAU MATOS MRN/PID: [id number] PCP: Stuart Hazel MD Accession/Order#: [id number] Department Location: [facility] Jovanny Date of : 1955 Fellow: Gender: F Nurse: Florence Callahan RN Admit Date: Paper Cutter Operator: Cassi Dimasz RDCS, RVT Height: 162.56 cm CC Report to: Weight: 100.70 kg Study Type: Echocardiogram BSA: 2.04 m2 Blood Pressure: 154 /90 mmHg Diagnosis/ICD: I51.89-Other ill defined heart diseases; R00.2-Palpitations; I49.3-Ventricular premature depolarization Indication: HTN, Hyperlipidemia, Obesity, Family History of CAD and Cardiomyopathy Procedure/CPT: Echo Complete w Full Doppler-[id number] Study Detail: The following Echo studies were performed: 2D, M-Mode, Doppler and color flow. Optison used as a contrast agent for endocardial border definition. Total contrast used for this procedure was 0.7 mL via IV push. PHYSICIAN INTERPRETATION: Left Ventricle: The left ventricular systolic function is normal, with an estimated ejection fraction of 65%. The left ventricular cavity size is normal. Spectral Doppler shows an impaired relaxation pattern of left ventricular diastolic filling. Left Atrium: The left atrium is normal in size. Right Ventricle: The right ventricle is normal in size. There is normal right ventricular global systolic function. Right Atrium: The right atrium is normal in size. Aortic Valve: The aortic valve appears structurally normal. There is no evidence of aortic valve regurgitation. The peak instantaneous gradient of the aortic valve is 9.1 mmHg. The mean gradient of the aortic valve is 4.0 mmHg. Mitral Valve: The mitral valve is normal in structure. There is mild mitral valve regurgitation. Mild mitral regurgitation. Tricuspid Valve: The tricuspid valve is structurally normal. No evidence of tricuspid regurgitation. Pulmonic Valve: The pulmonic valve is structurally normal. There is no indication of pulmonic valve regurgitation. Pericardium: There is no pericardial effusion noted. Aorta: The aortic root is normal. CONCLUSIONS: 1. The left ventricular systolic function is normal with a 65% estimated ejection fraction. 2. Spectral Doppler shows an impaired relaxation pattern of left ventricular diastolic filling. 3. Mild mitral regurgitation. 4. No change when compared to prior study. QUANTITATIVE DATA SUMMARY: 2D MEASUREMENTS: Normal Ranges: Ao Root d: 2.40 cm (2.0-3.7cm) LAs: 3.40 cm (2.7-4.0cm) RVIDd: 2.30 cm (0.9-3.6cm) IVSd: 0.80 cm (0.6-1.1cm) LVPWd: 0.70 cm (0.6-1.1cm) LVIDd: 5.20 cm (3.9-5.9cm) LVIDs: 3.80 cm LV Mass Index: 65.5 g/m2 LV % FS 26.9 % LV SYSTOLIC FUNCTION BY 2D PLANIMETRY (MOD): Normal Ranges: EF-A4C View: 45.1 % (>55%) LV DIASTOLIC FUNCTION: Normal Ranges: MV Peak E: 1.18 m/s (0.7-1.2 m/s) MV Peak A: 1.24 m/s (0.42-0.7 m/s) E/A Ratio: 0.95 (1.0-2.2) MV lateral e' 0.13 m/s MV medial e' 0.09 m/s E/e' Ratio: 9.10 (<8.0) MITRAL VALVE: Normal Ranges: MV Vmax: 1.38 m/s (<1.3m/s) MV peak P.6 mmHg (<5mmHg) MV mean P.0 mmHg (<48mmHg) MITRAL INSUFFICIENCY: Normal Ranges: MR Vmax: 411.00 cm/s AORTIC VALVE: Normal Ranges: AoV Vmax: 1.51 m/s (<1.7m/s) AoV Peak P.1 mmHg (<20mmHg) AoV Mean P.0 mmHg (1.7-11.5mmHg) LVOT Max Bert: 0.97 m/s (<1.1m/s) AoV VTI: 33.70 cm (18-25cm) LVOT VTI: 22.40 cm LVOT Diameter: 2.10 cm (1.8-2.4cm) AoV Area, VTI: 2.30 cm2 (2.5-5.5cm2) AoV Area,Vmax: 2.22 cm2 (2.5-4.5cm2) AoV Dimensionless Index: 0.66 PULMONIC VALVE: Normal Ranges: PV Max Bert: 0.7 m/s (0.6-0.9m/s) PV Max P.9 mmHg [id number] Yuan Boykin MD Electronically signed on 11/01/2020 at 5:10:00 PM Final Normal [facility] Vital Signs Date Time Vital Sign Value Performing Clinician Marely burch 06-17-2023 09:02-0400 Body height 162.6 cm [facility] DO Work Phone: [facility] 06-17-2023 09:02-0400 Body mass index (BMI) [Ratio] 27.79 kg/m2 Myxerng DO Work Phone: [facility] 06-17-2023 09:02-0400 Body weight 73.44 kg [employer]TechForwardng DO Work Phone: [facility] 06-17-2023 09:02-0400 Diastolic blood pressure 78 mm[Hg] Myxerng DO Work Phone: [facility] 06-17-2023 09:02-0400 Systolic blood pressure 142 mm[Hg] Myxerng DO Work Phone: [facility] 10-02-2022 16:04-0400 Body height 160.3 cm Aure Reynolds MD Work Phone: [facility] 10-02-2022 16:04-0400 Diastolic blood pressure 60 mm[Hg] Aure Reynolds MD Work Phone: [facility] 10-02-2022 16:04-0400 Heart rate 83 /min Aure Reynolds MD Work Phone: [facility] 10-02-2022 16:04-0400 Systolic blood pressure 116 mm[Hg] Auer Reynolds MD Work Phone: [facility] Encounters Encounter Date Encounter Type Care Provider Facility Start: 01-07-2024 End: 01-07-2024 Refill Stuart Hazel DO Work Phone: [facility] Start: 12-21-2023 End: 12-21-2023 Refill Stuart Hazel DO Work Phone: [facility] Comment on above: Essential hypertensi on Start: 09-16-2023 End: 09-16-2023 Evaluation and management of inpatient RHETT MENDOZA [facility] Start: 09-15-2023 End: 09-16-2023 Evaluation and management of inpatient JIM VERONICA [facility] Start: 09-10-2023 End: 09-10-2023 ambulatory [facility] Start: 09-09-2023 End: 09-09-2023 ambulatory [facility] Start: 08-14-2023 End: 08-14-2023 ambulatory [facility] Start: 07-14-2023 End: 07-15-2023 ambulatory [facility] Start: 07-14-2023 End: 07-14-2023 ambulatory [facility] Start: 06-17-2023 End: 06-17-2023 Patient encounter procedure Stuart Hazel DO Work Phone: [facility] Comment on above: Medicare annual well ness visit, subsequent (Primary Dx); Screening for depression Start: 06-17-2023 End: 06-17-2023 ambulatory [facility] Start: 05-13-2023 Refill Stuart wood DO Work Phone: [facility] Comment on above: Hyperlipidemia, unsp ecified; Essential (primary) hypertension Start: 10-02-2022 End: 10-02-2022 Subsequent hospital visit by physician Aure Reynolds MD Work Phone: [facility] Comment on above: Arrived Start: 05-20-2022 End: 05-20-2022 ambulatory TIFFANIE ESQUIVEL Facility:H1 Start: 05-15-2022 End: 05-16-[address] STUART HAZEL Facility:[facility]1 Start: 03-06-2022 End: 03-07-[address] STUART HAZEL Facility:H1 Procedures Date Procedure Procedure Detail Performing Clinician Start: 07-14-2023 Adult depression scr eening assessment Stuart Furlong DO Work Phone: Start: 06-17-2023 Adult depression scr eening assessment Stuart Furlong DO Work Phone: Start: 05-19-2023 Mammography Stuart Fur long DO Work Phone: Start: 01-14-2023 Adult depression scr eening assessment Stuart Furlong DO Work Phone: Start: 10-02-2022 Blood count hematocrit Aure Reynolds MD Work Phone: Start: 03-06-2022 Mammography Stuart Fur long DO Work Phone: Plan of Treatment Date Care Activity Detail Author Start: 09-14-2024 Adult BMI Screening Adult BMI Screening [facility] Start: 09-14-2024 Tobacco Screening Tobacco Screening [facility] Start: 07-13-2024 Depression Screening Depression Screening [facility] Start: 07-13-2024 Fall Risk Screening Fall Risk Screening [facility] Start: 06-22-2024 End: 06-22-2024 Patient encounter procedure 06/22/2024 9:00 AM EDT Office Visit [facility] [address] [place] [address] [facility] Start: 06-16-2024 Adult BMI Screening Adult BMI Screening [facility] Start: 06-16-2024 Depression Screening Depression Screening [facility] Start: 06-16-2024 Fall Risk Screening Fall Risk Screening [facility] Start: 06-16-2024 Medicare Annual Wellness Visit Medicare Annual Wellness Visit [facility] Start: 05-18-2024 Screening for malignant neoplasm of breast Mammogram [facility] Start: 01-15-2024 Adult BMI Follow Up Plan Adult BMI Follow Up Plan [facility] Start: 01-15-2024 Adult BMI Screening Adult BMI Screening [facility] Start: 01-15-2024 Depression Screening Depression Screening [facility] Start: 01-15-2024 Fall Risk Screening Fall Risk Screening [facility] Start: 01-15-2024 Tobacco Screening Tobacco Screening [facility] Start: 01-12-2024 End: 01-12-2024 Patient encounter procedure 01/12/2024 10:00 AM EDT Office Visit [facility] [address] [place] [address] Stuart Hazel, [address], [place] [address] [facility] Start: 11-16-2023 COVID-19 Vaccine ( season) COVID-19 Vaccine ( season) [facility] Start: 11-16-2023 Influenza vaccination Influenza Vaccine [facility] Start: 07-14-2023 End: 07-14-2023 Patient encounter procedure 07/14/2023 2:00 PM EDT Office Visit [facility] [address] [place] [address] Stuart Hazel DO [address] [place] [address] [facility] Start: 06-17-2023 End: 06-17-2023 Patient encounter procedure 06/17/2023 9:00 AM EDT Office Visit [facility] [address] [place] [address] [facility] Start: 03-06-2023 Screening for malignant neoplasm of breast Mammogram [facility] Start: 11-15-2022 Influenza vaccination INFLUENZA VACCINE (#1) [facility] Start: 05-28-2019 Administration of varicella zoster vaccine Zoster (Shingles) Vaccine (3 of 3) [facility] Start: 05-28-2019 Zoster vaccine hzv live for subcutaneous use ZOSTER (SHINGLES) VACCINE (3 of 3) [facility] Start: 1998 Screening for malignant neoplasm of colon [facility] Start: 1993 Lipid panel LIPID SCREENING [facility] Start: 1993 Screening for malignant neoplasm of breast MAMMOGRAM SCREENING DISCUSSION [facility] Start: 1974 Screening for malignant neoplasm of cervix CERVICAL CANCER SCREENING DISCUSSION [facility] Start: 1972 DTaP,Tdap and Td Vaccines (1 - Tdap) DTaP,Tdap and Td Vaccines (1 - Tdap) [facility] Start: 1972 Third diphtheria, tetanus and acellular pertussis (DTaP) vaccination TDAP (ADULT) [facility] Start: 1953 Hepatitis C screening HEPATITIS C VIRUS SCREENING [facility] Start: 1953 Medicare Annual Wellness Visit Medicare Annual Wellness Visit [facility] Start: 1953 Screening for osteoporosis DEXA SCAN DISCUSSION [facility] Start: 1953 Tetanus vaccination TETANUS [facility] MR Heart W contrast IV MRI CARDI AC WITH CONTRAST Imaging Routine Research exam 10/02/2022 5:23 PM EDT [facility] Work Phone: Immunizations Immunization Date Immunization Notes Care Provider Fa liv 01-21-2023 RSV, bivalent, prote in subunit RSVpreF, diluent reconstituted, 0.5 mL, PF Stuart Hazel DO Work Phone: [facility] 12-28-2022 Influenza, High-dose , Quadrivalent [facility] Work Phone: [facility] 12-28-2022 influenza virus vacc ine, unspecified formulation Stuart Furlong DO Work Phone: [facility] 01-12-2022 Influenza, High-dose , Quadrivalent Stuart Furlong DO Work Phone: [facility] 01-12-2022 influenza virus vacc ine, unspecified formulation Aure Reynolds MD Work Phone: [facility] 12-26-2020 Influenza, High-dose , Quadrivalent Stuart Furlong DO Work Phone: [facility] 01-06-2020 Influenza Vaccine, Quadrivalent, Adjuvanted Stuart Furlong DO Work Phone: [facility] 12-16-2019 influenza, seasonal, injectable Stuart Furlong DO Work Phone: [facility] 05-05-2019 pneumococcal polysaccharide vaccine, 23 valent Stuart Furlong DO Work Phone: [facility] 04-02-2019 zoster vaccine recombinant Stuart Furlong DO Work Phone: [facility] 04-02-2019 zoster vaccine, unspecified formulation Aure Reynolds MD Work Phone: [facility] 03-17-2019 pneumococcal conjuga te vaccine, 13 valent Stuart Furlong DO Work Phone: [facility] 01-14-2019 Seasonal, quadrivale nt, recombinant, injectable influenza vaccine, preservative free Stuart Furlong DO Work Phone: [facility] 01-07-2019 influenza, injectabl e, quadrivalent, contains preservative Stuart Furlong DO Work Phone: [facility] 04-09-2018 pneumococcal conjuga te vaccine, 13 valent Stuart Furlong DO Work Phone: [facility] 01-06-2018 influenza, seasonal, injectable Stuart Furlong DO Work Phone: [facility] 01-07-2017 influenza virus vacc ine, unspecified formulation Stuart Hazel DO Work Phone: [facility] 02-02-2015 influenza, seasonal, injectable, preservative free Stuart Hazel DO Work Phone: [facility] 04-15-2013 zoster vaccine, live Stuart Hazel DO Work Phone: [facility] Payers Date Payer Category Payer Commercial Indemnity [employer] Member Subscriber Plan / Payer (Effective 2019-Present) Name: Rehana Read Relation to Subscriber: Self Name: Rehana Read Payer ID: Not on file Type: Not on file Address: [place] [id number] 2019 Unknown [id number] 2018 Medicare [id number] 1959 Medicare [id number] 1959 Unknown [id number] 1953 Unknown [id number] 93 1953 Unknown [id number] 93 1953 Unknown [id number] 93 1953 Unknown [id number] 286 1953 Unknown [id number] 286 1953 Unknown [id number] 286 1953 Unknown [id number] 286 1953 Unknown [id number] 286 1953 Unknown [id number] [id number] 286 1953 Unknown [id number] 286 1953 Unknown [id number] 286 1953 Unknown [id number] [id number] 286 1953 Unknown [id number] 286 1953 Unknown [id number] 286 Social History Date Type Detail Facility Tobacco smoking stat us NDIS Tobacco smoking consumption unknown [facility] Start: 08-12-2021 End: 06-17-2023 History of Social function [facility] Start: 08-12-2021 End: 06-17-2023 Tobacco use panel [facility] Start: 1955 Sex Assigned At Not on file [facility] Start: 05-23-2022 Tobacco smoking status NDIS Never smoked tobacco [facility] Start: 05-23-2022 Tobacco use and exposure Smokeless tobacco non-user [facility] Start: 01-14-2023 End: 06-17-2023 Alcohol intake Ex-drinker (finding) [facility] How often to you hav e a drink containing alcohol? 2-4 times a month [facility] How many standard dr inks containing alcohol do you have on a typical day? 1 or 2 [facility] How often do you hav e 6 or more drinks on 1 occasion? Never [facility] How hard is it for y ou to pay for the very basics like food, housing, medical care, and heating Not hard at all [facility] Has the [employer], or [employer] threatened to shut off services in your home in past 12Mo No [facility] Do you belong to any clubs or organizations such as holiness groups, unions, fraternal or athletic groups, or school groups? Yes [facility] Are you now , , , , never or living with a partner? [facility] Do you feel stress - tense, restless, nervous, or anxious, or unable to sleep at night because your mind is troubled all the time - these days [OSQ] Only a little [facility] Start: 09-16-2023 Alcoholic beverage intake Current drinker of alcohol (finding) [facility] Start: 09-09-2023 Alcohol Comment 3-4 times a years [facility] Start: 10-20-2014 Sex Female (finding) [facility] History of Present illness Narrative 06-17-2023 Stuart Hazel, DO - 06/17/2023 9:00 AM EDT Note Date & Type Note Facility 06-17-2023 History of Presen t illness Narrative Subjective SUBJECTIVE: Patient ID: Rehana Read is a 68 y.o. female who presents for a Medicare Annual Wellness exam. HPI The following portions of the patient's history were reviewed and updated as appropriate: allergies, current medications, past family history, past medical history, past social history, past surgical history and problem list. AWV FLOWSHEET : Lifestyle Assessment Do you smoke or use smokeless tobacco?: No If you smoke or use smokeless tobacco, are you ready to quit?: NA Are you exposed to secondhand smoke?: No On average, how many drinks of alcohol do you consume in a week?: None Do you exercise for 30 or more minutes on average at least 3 days a week?: Often Do you have any tooth, denture, or oral problems?: No Do you snore or has anyone told you that you snore?: (!) Yes Do you try to eat a balanced diet?: Yes Do you experience leakage of urine, also known as urinary incontinence?: (!) Sometimes Do you have difficulty performing any of these activities? (check all that apply): None Do you have difficulty performing any of these activities? (check all that apply): None Fall Risk Fall Risk Assessment Completed?: Yes Have you fallen in the past year?: (!) Yes How many times?: 1 Were you injured?: No Are you worried about falling?: No Do you feel unsteady when standing or walking?: No Risk Stratification: Moderate Risk Depression Screening Little interest or pleasure in doing things: Not at all Feeling down, depressed, or hopeless: Not at all Trouble falling or staying asleep, or sleeping too much: Not at all Feeling tired or having little energy: Not at all Poor appetite or overeating: Not at all Feeling bad about yourself - or that you are a failure or have let yourself or your family down: Not at all Trouble concentrating on things, such as reading the newspaper or watching television: Not at all Moving or speaking so slowly that other people could have noticed. Or the opposite - being so fidgety or restless that you have been moving around a lot more than usual: Not at all Thoughts that you would be better off , or of hurting yourself in some way: Not at all PEG Scale Safety Assessment Do you have throw rugs on the floor?: No Do you feel safe at your home?: Yes Do you feel unsteady when walking?: No Are you having difficulty with driving?: No Do you have trouble seeing?: No What assistive device do you use? (check all that apply): None Hearing Assessment Do you strain or struggle to hear/understand conversations?: No Do you have trouble hearing the television or radio when others do not?: No Does your family ever voice concerns about your hearing?: No Do you wear hearing aid/s?: (!) Yes Personal Health During the past 4 weeks, how would you rate your overall health?: Very Good Do you understand how to take all of your medications?: Yes How confident are you that you can control and manage most of your health problems?: Very confident In the past 12 months, how many times have you been hospitalized?: (!) One End of Life Planning Do you have a living will?: (!) No Do you have a durable power of deputy prosecuting attorney?: (!) No Cognitive Screening Do you have trouble remembering or recalling facts or events?: No Do family members or caregivers report that you have difficulty remembering things?: No 6-Cit[employer] Normal REVIEW OF SYSTEMS: Review of Systems Objective PHYSICAL EXAMINATION: Vitals: 06/17/23 0902 Weight: 73.4 kg (161 lb 14.4 oz) Height: 162.6 cm (5' 4 ) Physical Exam Assessment/Plan ASSESSMENT/PLAN Health maintenance discussed. Depression screen was negative. At least 3 minute spent administering and discussing. Cognitive evaluation did not reveal any impairment. She does not have advanced directives in place. She was encouraged to do so. Return in about 1 year (around 06/16/2024). documented in this encounter [facility] Evaluation note Note Date & Type Note Facility Evaluation note Diagnosis Hyperlipidemia, unspecified Essential (primary) hypertension Unspecified essential hypertension documented in this encounter [facility] Evaluation note Note Date & Type Note Facility Evaluation note Diagnosis Medicare annual wellness visit, subsequent- Primary Screening for depression documented in this encounter [facility] Evaluation note Note Date & Type Note Facility Evaluation note Diagnosis Essential hypertension Unspecified essential hypertension documented in this encounter [facility] Instructions Note Date & Type Note Facility Instructions Not on filedocumented in this en counter [facility] Instructions Note Date & Type Note Facility Instructions Not on filedocumented in this en counter [facility] Instructions Note Date & Type Note Facility Instructions Not on filedocumented in this en counter [facility] Instructions Note Date & Type Note Facility Instructions Not on filedocumented in this en counter [facility] Summary Purpose Family History No Family History Records FoundNo Family History Records FoundNo Family History Records FoundNo Family History Records FoundNo Family History Records FoundNo Family History Records Found Advance Directives No Advanced Directives Records FoundNo Advanced Directives Records FoundNo Advanced Directives Records FoundNo Advanced Directives Records FoundNo Advanced Directives Records FoundNo Advanced Directives Records Found Additional Source Comments INFORMATION SOURCE (unrecogn ized section and content) DATE CREATED AUTHOR 11/01/2020 [facility] DATE CREATED AUTHOR AUTHOR'S ORGANIZ ATION 06/27/2021 [facility] DATE CREATED AUTHOR AUTHOR'S ORGANIZ ATION 05/21/2022 [facility] DATE CREATED AUTHOR AUTHOR'S ORGANIZ ATION [facility]/[address] [facility] DATE CREATED AUTHOR AUTHOR'S ORGANIZ ATION 09/11/2023 [facility] DATE CREATED AUTHOR AUTHOR'S ORGANIZ ATION 09/19/2023 [facility] Reason for Visit (unrecogniz ed section and content) Specialty Diagnoses / Procedures Referred By Romaine medley Referred To Contact Diagnoses Research exam Procedures MRI CARDIAC WITH CONTRAST MRI CARDIAC WITH CONTRAST W/VELOCITY FLOW MAP MT CARDIAC MRI MORPHOLOGY & FUNCTION W/O CONTRAST MT CHG CARDIAC MRI FOR VELOCITY FLOW MAPPING Aure Reynolds MD [address] [place] [address] [address] [place] [address] Referral ID Status Reason Start Date Expiration Date V isits Requested Visits Authorized [id number] New Request 09/24/2022 10/19/2023 1 1 Reason Comments Med Refill Reason Comments medicare annual wellness Care Teams (unrecognized sec tion and content) [employer] Supervisor Relationship Specialty Start Date End Date Stuart Hazel DO [address] [place] [address] PCP - General Family Medicine 08/22/22 [employer] Supervisor Relationship Specialty Start Date End Date Stuart Hazel DO [address] [place] [address] PCP - General Family Medicine 08/22/22 [employer] Supervisor Relationship Specialty Start Date End Date Stuart Hazel DO [address] [place] [address] PCP - General Family Medicine 08/22/22 Tonya Brown [facility] Nurse - [employer] 10/14/23 [employer] Supervisor Relationship Specialty Start Date End Date Stuart Hazel DO [address], [place] [address] PCP - General Family Medicine 08/22/22 Tonya Brown [facility] Nurse - [employer] 10/14/23 FOR RECORDS PERTAINING TO PATIENTS WHO ARE OR HAVE BEEN ENROLLED IN A CHEMICAL DEPENDENCY/SUBSTANCEABUSE PROGRAM, SOME INFORMATION MAY BE OMITTED. This clinical summary was aggregated from multiple sources. Caution should be exercised in using it in the provision of clinical care. This summary normalizes information from multiple sources, and as a consequence, information in this document may materially change the coding, format and clinical context of patient data. In addition, data may be omitted in some cases. CLINICAL DECISIONS SHOULD BE BASED ON THE PRIMARY CLINICAL RECORDS. [facility] [employer] [facility]. provides no warranty or guarantee of the accuracy or completeness of information in this document.
== END 2024-01-12 14:06 | disposition home or self-care (01) ==
LOC: RAD 14:07
PROVIDERS: PCP Family Medicine; Visit Provider Family Medicine
DX: M79.675 Pain in left toe(s) (principal); S92.525A Nondisplaced fracture of middle phalanx of left lesser toe(s), initial encounter for closed fracture
CPT/HCPCS: 73660